=== PATIENT | male | born 1985 | race Caucasian/White ===

== ENCOUNTER 2019-01-28 06:25 | Day surgery (SDC) | payer OTHER ==
[~2019-01-28] VITALS: Ht 175.3 cm; Wt 80.7 kg
--- NOTE | 2019-01-28 10:01 | NUR ---
01/28/19 1001 Lyle,Kelly 0948 PT ARRIVED TO PACU ON 10L VIA MASK, PT RESP EVEN AND UNLABORED. PT WAKES TO TACTILE STIMULI AND REORIENTED TO PACU. PT REACHING FOR MASK. 0951 PT BACK TO SLEEP AND O2 MASK REMAINS IN PLACE AND DECREASED TO 6L HOB INCREASED SLIGHTLY. PT ENCOURGED TO DEEP BREATHE. 0957 PT ALSEEP AND SMALL AMOUNT OF SNORING NOTED. 0958 PT WOKE AND REACHING FOR MASK, O2 REMOVED AND SPINAL LEVEL L1. PT EDUCATION GIVEN ON SPINAL.
[2019-01-28] MEDS ORDERED: HYDROCODON-ACE1 EA10 PO (10:07)
[2019-01-28] MEDS ORDERED: TYLENOL EXTRA500 MG PO (10:07)
[2019-01-28] MEDS ORDERED: IBUPROFEN600 MG PO (10:07)
[2019-01-28] MEDS ORDERED: ANTIBIOTIC28.4 GM TOP (10:08)
--- NOTE | 2019-01-28 20:17 | OR ---
[facility] [address] [place], [place] [address] Signed DATE OF OPERATION: 01/28/2019 SURGEON: Garrett Cao MD PREOPERATIVE DIAGNOSIS: Chronic [id number]-[id number]. POSTOPERATIVE DIAGNOSIS: Chronic draining perineal sinus. No evidence of ycbsnmn-[id number]-pkq. PROCEDURES: 1. Exam under anesthesia. 2. Incision and drainage, debridement and biopsy of chronic perineal sinus. ANESTHESIA: Saddle block with local anesthetic, 10 mL of 0.25% Marcaine with epinephrine. INDICATION: This 33-year-old white man is a prisoner at [facility] and a patient of Dr. Cuco Sandoval. He is said to have a history of perirectal abscess with drainage. This was in August of 2017, treated by Dr. Lindsay at [facility] in [place], [place]. A plan for anal fistulotomy was made. Due to legal issues, he was transferred to the shelter locally and has had continuous episodic drainage from the area. The tract was in the anterior midline along the median raphae. He underwent cystoscopy by Dr. Ames at that hospital with no sign of urethral abnormality from records I have reviewed. He continues to have a sinus or pit 2 cm from the anal verge in exact midline anteriorly. He has had forcible passage of urinary blood clots in the past, none recently. He is admitted at this time to undergo exam under anesthesia and possible anal fistulotomy if present or other intervention as appropriate. He understands the risks of bleeding, infection, fecal incontinence, urinary problems, and other unforeseen complications and wished to proceed. FINDINGS: This did not represent a pqagytu-jb-psg. Rather, it was a chronic draining sinus of the perineum in the exact midline. Treatment consisted of wide opening of the sinus tract revealing underlying moist granulating tissue. There was no sign of fistulous connection to the urethra nor the anorectum. The area was debrided fully and left open. DESCRIPTION OF PROCEDURE: The patient was brought to the operating room, given a saddle block anesthetic and Electronically Signed By: GARRETT CAO MD 01/28/192016 PATIENT NAME: NANCY ALVAREZ OPERATIVE REPORT DATE OF : 85 REPORT #: [id number] PHYSICIAN: GARRETT CAO MD PCP: CUCO SANDOVAL MD REPORT IS CONFIDENTIAL AND NOT TO BE RELEASED WITHOUT AUTHORIZATION [facility] [address] [place], [place] [address] Signed placed in the prone jackknife position. Preoperative antibiotics were given. Sequential compression device stockings used and heparin subcutaneous administered. The perineum was clipped and photographs were taken after taping the buttocks apart. The obvious sinus in the midline about 2-3 cm from the anal verge was noted. The perineum was prepared with a DuraPrep solution and draped sterilely. Probing with a lacrimal duct probe showed the fistulous opening not to go to the anal canal, but rather to the relatively superficial tissues of the base of the scrotum in the exact midline. The sinus opening was approximately 4-5 cm in length. The tip of the probe was incised with electrocautery and the depth of the abnormality was not excessive and therefore was opened directly along the probe with electrocautery. This revealed an underlying chronic granulation tissue of the tract, which was then cauterized fully. It was then debrided with some curettes and additionally cauterized for hemostasis. There was no sign of opening to the urethra nor to the anal canal. Once complete hemostasis was assured and after photographs have been taken, 10 mL of 0.25% Marcaine with epinephrine was injected locally. Plain gauze was packed into the wound. An athletic supporter obtained. The athletic supporter was positioned once patient returned to the supine position. The patient was allowed to emerge from sedation, taken to recovery room in good condition having suffered no complications. Sponge, needle, and instrument counts reported as correct x3. MD ANU Henderson/MODL /[id number] cc: Cuco Sandoval MD Copies: CUCO SANDOVAL MD ~ Electronically Signed By: GARRETT CAO MD 01/28/192016 PATIENT NAME: NANCY ALVAREZ OPERATIVE REPORT DATE OF : 85 REPORT #: [id number] PHYSICIAN: GARRETT CAO MD PCP: CUCO SANDOVAL MD REPORT IS CONFIDENTIAL AND NOT TO BE RELEASED WITHOUT AUTHORIZATION
--- NOTE | 2019-01-29 16:08 | PATH ---
[facility] [address] [facility] [place] [address] Signed SPECIMEN(S): A PERINEAL SINUS SPECIMEN SOURCE: A. PERINEAL SINUS CLINICAL HISTORY: Products of debridement, perineal sinus. FINAL PATHOLOGIC DIAGNOSIS: Products of debridement, perineal sinus, debridement: - Cauterized soft tissue admixed with blood, acute and chronic inflammation, and histiocytes. - Negative for malignancy. COMMENT: The majority of the soft tissue received within the biopsy is cauterized and cannot be microscopically examined. No malignancy is seen. NAL:cml:C2NR MICROSCOPIC EXAMINATION: Histologic sections of all submitted blocks are examined by light microscopy. These findings, together with the gross examination, support the pathologic diagnosis. GROSS DESCRIPTION: The specimen, labeled "FREDY, products of debridement, perineal sinus," is received in formalin and consists of a 1.2 x 0.6 x 0.2 cm aggregate of red-brown hemorrhagic and friable tissue fragments. The specimen is entirely submitted in cassette (A1). AM (under the direct supervision of a pathologist) The Gross Description was prepared using a voice recognition system. The report was reviewed for accuracy; however, sound-alike word errors, addition and/or deletions may occur. If there is any question about this report, please contact Client Services. PERFORMING LABORATORY: The technical component was performed by [facility], [address] [place] [id number] (Director Of Adult Epilepsy: Molly Bautista MD; CLIA# [id number]). [facility], [address] [facility]. 107, PATIENT NAME: NANCY ALVAREZ PATHOLOGY DATE OF : 85 REPORT #: [id number] PHYSICIAN: NOHEMI PATHOLOGY PCP: PARIS SANDOVAL MD REPORT IS CONFIDENTIAL AND NOT TO BE RELEASED WITHOUT AUTHORIZATION [facility] [address] [place] [address] [place], [place] [address] Signed [place] [id number] (Director Of Adult Epilepsy: Lee Davies MD; CLIA# [id number]). Diagnostician: Pippa Lacey MD Pathologist Electronically Signed 01/29/2019 Copies: ~ PATIENT NAME: NANCY ALVAREZ PATHOLOGY DATE OF : 85 REPORT #: [id number] PHYSICIAN: NOHEMI PATHOLOGY PCP: PARIS SANDOVAL MD REPORT IS CONFIDENTIAL AND NOT TO BE RELEASED WITHOUT AUTHORIZATION
== END 2019-01-28 11:25 | disposition home or self-care (01) ==
LOC: DS 06:25 → OPS 06:25 → DS 06:45 → OPS 06:45
PROVIDERS: Surgery
PROC: 0J9B0ZZ Drainage of Perineum Subcutaneous Tissue and Fascia, Open Approach (ICD-10-PCS; principal; 2019-01-28 06:45)
DX: N36.0 Urethral fistula (principal); F32.4 Major depressive disorder, single episode, in partial remission; K62.89 Other specified diseases of anus and rectum; Z87.891 Personal history of nicotine dependence; Z86.59 Personal history of other mental and behavioral disorders
CPT/HCPCS: J0330; J0690; J1100; J1644; J1885; J2250; J2405; J2704; J2765; J3010; J7121

== ENCOUNTER 2019-02-09 11:17 | Emergency (ER) | payer OTHER ==
[~2019-02-09] VITALS: Ht 175.3 cm; Wt 81.7 kg
[~2019-02-09 11:17] MED LIST: ANTIBIOTIC28.4 GM TOP; HYDROCODON-ACE1 EA10 PO; IBUPROFEN600 MG PO; TYLENOL EXTRA500 MG PO
== END 2019-02-09 13:28 | disposition home or self-care (01) ==
LOC: ED 11:17
DX: L76.22 Postprocedural hemorrhage of skin and subcutaneous tissue following other procedure (principal); Z87.891 Personal history of nicotine dependence
CPT/HCPCS: 36415; 85018; 99283